=== PATIENT | female | born 1970 | race Hispanic/Latino ===

== ENCOUNTER 2023-07-24 17:18 | Emergency (ER) | payer OTHER ==
[~2023-07-24] VITALS: Ht 170.2 cm; Wt 102.1 kg
[2023-07-24 17:27] VITALS: BP 130/104; PULSE 101; RESP 16; O2SAT 96
[2023-07-24] MEDS ORDERED: IBUPROFEN 600 MG TABLET PO ONE (18:00)
[2023-07-24] MEDS ORDERED: ONDANSETRON ODT 4MG TAB SL ONE (18:00)
[2023-07-24] MEDS ORDERED: HYDROCODONE/ACETAMINOPHEN 5/325 MG TAB PO ONE (18:00)
[2023-07-24] MEDS ORDERED: TETANUS/DIPHTHERIA TOXOID [ADULT] 0.5 ML VIAL IM ONE (18:00)
[2023-07-24] MEDS ORDERED: CEPH500B PO (19:11)
== END 2023-07-24 19:33 | disposition home or self-care (01) ==
LOC: EDH 17:18
DX: S81.811A Laceration without foreign body, right lower leg, initial encounter (principal); Z90.49 Acquired absence of other specified parts of digestive tract; W45.8XXA Other foreign body or object entering through skin, initial encounter; Y93.89 Activity, other specified; Y92.89 Other specified places as the place of occurrence of the external cause; Y99.8 Other external cause status
CPT/HCPCS: 12002; 73590; 90471; 90714